=== PATIENT | female | born 1980 | race Caucasian/White ===

== ENCOUNTER 2020-09-12 08:00 | Day surgery (SDC) | payer OTHER | END 2020-09-12 20:50 | disposition home or self-care (01) | LOC: CIR.AMB 08:00 | PROVIDERS: ATTEND Surgery | DX: D05.11 Intraductal carcinoma in situ of right breast (principal); Z90.11 Acquired absence of right breast and nipple; Z20.822 Contact with and (suspected) exposure to COVID-19 | CPT/HCPCS: 19303; 38525; 38792; 19357; C1789 ==

== ENCOUNTER 2023-10-19 06:42 | Day surgery (SDC) | payer OTHER ==
[2023-10-19] MEDS ORDERED: DIPHENHYDRAMINE HCL 50 MG/ML VIAL 1ML IV ONE (12:30)
[2023-10-19] MEDS ORDERED: ONDANSETRON HCL 2 MG/ML VIAL IV ONE (12:30)
[2023-10-19] MEDS ORDERED: fentaNYL CITRATE 50 MCG/ML AMPUL IV PUSH ONE (12:30)
[2023-10-19] MEDS ORDERED: MIDAZOLAM HCL 2 MG/2 ML VIAL IV ONE (12:30)
== END 2023-10-19 14:15 | disposition home or self-care (01) ==
LOC: AMB-ENDOS 06:42 → CIR.AMB 13:30 → AMB-ENDOS 14:15
PROVIDERS: ATTEND Colon & Rectal Surgery
DX: K57.30 Diverticulosis of large intestine without perforation or abscess without bleeding (principal); K64.0 First degree hemorrhoids